=== PATIENT | female | born 1985 | race Caucasian/White ===

== ENCOUNTER 2023-05-22 17:15 | Emergency (ER) | payer OTHER, SELFPAY ==
--- NOTE | 2023-05-22 17:21 | DI.RAD.S_ITS ---
PROCEDURE: XR HUMERUS RT 2V INDICATIONS: pain s/p fall TECHNIQUE: 3 views of the humerus were acquired. COMPARISON: None. FINDINGS: Bones: Displaced and comminuted fracture of the midshaft of the humerus. No suspicious bony lesions. Soft tissues: No suspicious soft tissue calcifications. IMPRESSION: Displaced and comminuted fracture of the midshaft of the humerus. Dictated by: Tejas Sanchez M.D. on 05/22/2023 at 17:54 Approved by: Tejas Sanchez M.D. on 05/22/2023 at 17:55
[2023-05-22 17:23] VITALS: BP 133/83; PULSE 77; RESP 18; TEMP 36.7; O2SAT 95; BMI 37.4
--- NOTE | 2023-05-22 17:23 | DI.RAD.S_ITS ---
PROCEDURE: XR ANKLE LT MIN 3V INDICATIONS: pain s/p fall TECHNIQUE: 3 views of the ankle were acquired. COMPARISON: None. FINDINGS: Bones: No fractures or dislocations. Ankle mortise is normally aligned. No suspicious bony lesions. Soft tissues: No tibiotalar joint effusion. Achilles tendon appears normal. IMPRESSION: No acute bony abnormality or significant effusion. Dictated by: Tejas Sanchez M.D. on 05/22/2023 at 17:55 Approved by: Tejas Sanchez M.D. on 05/22/2023 at 17:56
[2023-05-22 17:50] VITALS: PULSE 60
--- NOTE | 2023-05-22 18:03 | ED.UPPEXIN ---
HPI - Extremity Injury (Upper) General Chief Complaint: Extremity Injury, Upper Stated Complaint: R arm pain from fall Time Seen by Provider: 05/22/23 17:41 Source: patient and EMS Mode of arrival: EMS History of Present Illness HPI narrative: 38-year-old right-hand dominant female presents from home by private vehicle for right arm pain and left ankle pain. Patient was on a ladder and fell from approximately counter height onto her right arm. She is right-hand dominant. Reporting severe pain in her right mid arm. Denies numbness or weakness. Denies head injury, loss of consciousness, use of blood thinners Related Data Home Medications Medication Instructions Recorded Confirmed meloxicam 15 mg tablet 15 mg PO DAILY 08/04/19 05/03/22 sertraline 50 mg tablet 50 mg PO DAILY 08/04/19 05/03/22 levonorgestrel 0.15 mg-ethinyl 1 tab PO DAILY 07/21/20 05/03/22 estradiol 30 mcg tablets,3 mos pack(91) (Andrea) levothyroxine 137 mcg capsule 137 mcg PO DAILY 07/21/20 05/03/22 omeprazole 20 mg capsule,delayed 20 mg PO DAILY 07/21/20 05/03/22 release Previous Rx's Medication Instructions Recorded hydrocodone 5 mg-acetaminophen 325 1 tab PO Q4-6H PRN pain #15 tabs 05/22/23 mg tablet methocarbamol 500 mg tablet 500 mg PO TID #30 tabs 05/22/23 Allergies Allergy/AdvReac Type Severity Reaction Status Date / Time nitrofurantoin Allergy confusion Verified 05/22/23 17:27 [From Macrobid] Penicillins Allergy throat Verified 05/22/23 17:27 brian Review of Systems Review of Systems Narrative: Negative except as noted above Patient History Medical History Excessive daytime sleepiness (~11/2019) Obstructive sleep apnea syndrome (~11/2019) Obesity (BMI 30-39.9) GERD (gastroesophageal reflux disease) Family History Family/Other Loud snoring Sleep apnea Obesity Alcohol abuse Father Loud snoring Sleep apnea Obesity Anxiety Alcohol abuse Mother Obesity Depression Anxiety Social History Smoking Status: Former smoker alcohol intake: current (rare social) substance use type: does not use Smoking Status: Former smoker alcohol intake frequency: a few times a month Substance Use Type: does not use Exam Initial Vital Signs Initial Vital Signs: Vital Signs Temperature 98.1 F 05/22/23 17:23 Pulse Rate 77 05/22/23 17:23 Respiratory Rate 18 05/22/23 17:23 Blood Pressure 133/83 05/22/23 17:23 Pulse Oximetry 95 05/22/23 17:23 Oxygen Delivery Method Room Air 05/22/23 17:23 Const: Awake, alert, uncomfortable, in pain Cardiac: regular rate, regular rhythm RESP: unlabored, clear bilaterally, no wheezing GI: Atraumatic, soft, nontender MSK: Swelling mid right biceps area, 2+ radial pulses, sensation intact and equal bilaterally, range of motion limited due to pain Skin: Warm, Dry, intact, no rashes Neuro: AO x3, CN II-XII grossly intact Psych: Appropriate for condition Course Orders Ordered: ED Orders 05/22/23 17:21 XR humerus RT 2V Stat 05/22/23 17:23 XR ankle LT min 3V Stat Discontinued Medications Acetaminophen (Acetaminophen 325 Mg Tablet) 975 mg PO NOW ONE Stop: 05/22/23 18:10 Last Admin: 05/22/23 18:14 Dose: 975 mg Documented By: YANELY Oxycodone HCl (Oxycodone Ir 5 Mg Tablet) 5 mg PO NOW ONE Stop: 05/22/23 18:10 Last Admin: 05/22/23 18:14 Dose: 5 mg Documented By: YANELY Vital Signs Vital signs: Vital Signs - 8 hr 05/22/23 17:23 05/22/23 17:50 Temperature 98.1 F Pulse Rate 77 Pulse Rate [Right Radial] 60 Respiratory Rate 18 Blood Pressure 133/83 Pulse Oximetry 95 Oxygen Delivery Method Room Air MDM - Extremity Injury (Upper) Differential Diagnosis Differential diagnosis: Likely sprain and strain of wrist, fracture of wrist, dislocation of shoulder and fracture of humerus MDM Narrative Medical decision making narrative: Uncomfortable but nontoxic patient with upper extremity injury after falling from counter height from a ladder. There does appear to be deformity of the right upper extremity, however she is neurologically and vascularly intact. She was given pain medication for symptoms. X-rays confirmed displaced and comminuted midshaft humerus fracture, x-rays of the ankle were negative for acute findings. Dr. Ruby of Orthopedic surgery was consulted, he recommended either coaptation or Fabian splint and follow up in clinic. Unfortunately we did not have appropriately sized Fabian splint and so she was placed in a coaptation splint and sling. Pain medications sent to pharmacy of choice. Discharge Plan Departure Patient Disposition: Home Clinical Impression: Fracture, humerus closed, shaft Qualifiers: Encounter type: initial encounter Fracture morphology: spiral Fracture alignment: displaced Laterality: right Qualified Code(s): S42.341A - Displaced spiral fracture of shaft of humerus, right arm, initial encounter for closed fracture Fall on and from ladder causing accidental injury Qualifiers: Encounter type: initial encounter Qualified Code(s): W11.XXXA - Fall on and from ladder, initial encounter Instructions: DI for Humeral Fracture Prescriptions: New methocarbamol 500 mg tablet 500 mg PO TID Qty: 30 0RF hydrocodone-acetaminophen 5-325 mg tablet 1 tab PO Q4-6H PRN (Reason: pain) Qty: 15 0RF No Action meloxicam 15 mg tablet 15 mg PO DAILY sertraline 50 mg tablet 50 mg PO DAILY levothyroxine 137 mcg capsule 137 mcg PO DAILY omeprazole 20 mg capsule,delayed release(DR/EC) 20 mg PO DAILY levonorgestrel-ethinyl estrad [Jolessa] 0.15 mg-30 mcg (91) tablets,dose pack,3 month 1 tab PO DAILY Referrals: Miscellaneous,MD Robby [Primary Care Provider] - Jeffry Ruby MD [Physician] - Stand Alone Forms: Patient Portal/API
[2023-05-22] MEDS: ACETAMINOPHEN 325 MG TABLET 975 MG PO (18:14)
[2023-05-22] MEDS: OXYCODONE IR 5 MG TABLET PO (18:14)
== END 2023-05-22 19:20 | disposition home or self-care (01) ==
PROVIDERS: Emergency Provider Emergency Medicine
DX: S42.341A Displaced spiral fracture of shaft of humerus, right arm, initial encounter for closed fracture (principal); M25.572 Pain in left ankle and joints of left foot; W11.XXXA Fall on and from ladder, initial encounter
CPT/HCPCS: 73060; 73610; 99283

== ENCOUNTER → 2025-02-16 10:12 | Outpatient (CLI) | payer OTHER, SELFPAY ==
--- NOTE | 2025-02-16 10:16 | DI.MG.S_ITS ---
MM diagnostic mammo unilat RT, US breast RT limited: 02/16/2025 BI-RADS: 3 CLINICAL: 39-year old female for right diagnostic mammogram and right diagnostic breast ultrasound. The patient presents for additional evaluation of an inconclusive screening mammogram. Tyrer-Cuzick lifetime risk of 9.5%. No personal or first-degree family history of breast cancer. PRIOR EXAMS [facility] 10/01/2024. MAMMOGRAPHY TECHNIQUE: 2D and 3D (tomosynthesis) digital mammographic views obtained, with additional images as needed for full coverage. Current study was also evaluated with a Computer Aided Detection (CAD) system. ULTRASOUND TECHNIQUE TARGETED Right Breast Ultrasound: Real-time ultrasound exam was performed focused to area of clinical and/or imaging concern. Real-time purcell scale imaging of the area of clinical interest was performed with image documentation. DENSITY Right: B. There are scattered areas of fibroglandular density. MAMMOGRAPHY FINDINGS Right (finding-1): Outer at 9:00, Posterior depth, measuring 0.6cm: Correlating with findings on screening mammogram, there is a focal asymmetry present. ULTRASOUND FINDINGS Right (finding-1): Outer at 9:00, Retroareolar: There is no sonographic correlate for the mammographic finding. No suspicious sonographic finding present. IMPRESSION: Right (Asymmetry): Outer at 9:00, Posterior depth, measuring 0.6cm * Probably Benign. RECOMMENDATIONS Right: Outer at 9:00, Posterior depth * Six month followup with diagnostic mammography and diagnostic ultrasound. Ultrasound to be performed only if needed. COMMENTS: Findings and recommendations were conveyed to the patient during today's evaluation. OVERALL ASSESSMENT CATEGORY BI-RADS-3: Probably Benign. ELECTRONICALLY SIGNED: Magdalene Christopher M.D. on 02/16/2025 at 06:32:04 PM PT Interpreting Station ID: [id number]
== END ==
PROVIDERS: Referring Provider Physician Assistant; Visit Provider Physician Assistant
DX: R92.8 Other abnormal and inconclusive findings on diagnostic imaging of breast (principal); N64.89 Other specified disorders of breast; R92.321 Mammographic fibroglandular density, right breast
CPT/HCPCS: 76642; 77065; G0279